=== PATIENT | male | born 1985 | race Caucasian/White ===

== ENCOUNTER 2022-09-07 22:50 | Emergency (ER) | payer OTHER ==
[~2022-09-07] VITALS: Ht 172.7 cm; Wt 107.0 kg
[2022-09-08 02:30] VITALS: BP 126/79
--- NOTE | 2022-09-08 07:27 | EKG ---
[facility] [address] [facility] [place], [place] [address] Signed Normal sinus rhythm Normal ECG When compared with ECG of 07-SEP-2022 23:03, (Unconfirmed) No significant change was found Confirmed by SYEDA VARELA MD ([id number]) on 09/08/2022 7:27:21 AM Electronically Signed By: SYEDA VARELA MD 09/08/22 0727 PATIENT NAME: MATT DOHERTY Electrocardiogram DATE OF : 85 PHYSICIAN: SYEDA VARELA MD REPORT #: [id number] REPORT IS CONFIDENTIAL AND NOT TO BE RELEASED WITHOUT AUTHORIZATION
--- NOTE | 2022-09-08 07:27 | EKG ---
[facility] [address] [facility] [place], [place] [address] Signed Normal sinus rhythm Normal ECG No previous ECGs available Confirmed by SYEDA VARELA MD ([id number] on 09/08/2022 7:27:13 AM Electronically Signed By: SYEDA VARELA MD 09/08/22 0727 PATIENT NAME: MATT DOHERTY Electrocardiogram DATE OF : 85 PHYSICIAN: SYEDA VARELA MD REPORT #: [id number] REPORT IS CONFIDENTIAL AND NOT TO BE RELEASED WITHOUT AUTHORIZATION
== END 2022-09-08 02:31 | disposition home or self-care (01) ==
LOC: ED 22:50
DX: R07.9 Chest pain, unspecified (principal); Z88.5 Allergy status to narcotic agent
CPT/HCPCS: 36415; 71045; 80053; 81003; 84484; 85025; 85610; 93005; 93010; 99285-25; J7121

== ENCOUNTER 2022-12-02 20:29 | Emergency (ER) | payer OTHER ==
[~2022-12-02] VITALS: Ht 172.7 cm; Wt 106.6 kg
[2022-12-02] MEDS ORDERED: INVEGA3 MG PO (21:31)
[2022-12-02] MEDS ORDERED: PROZAC20 MG PO (21:32)
[2022-12-02] MEDS ORDERED: COREG3.125 MG PO (21:33)
[2022-12-02] MEDS ORDERED: LIPITOR80 MG PO (21:33)
[2022-12-02] MEDS ORDERED: OMEPRAZOLE20 MG PO (21:34)
[2022-12-02] MEDS ORDERED: NITROSTAT0.4 MG SL (21:34)
[2022-12-02] MEDS ORDERED: LISINOPRIL5 MG PO (21:34)
[2022-12-02] MEDS ORDERED: MINIPRESS5 MG PO (21:35)
[2022-12-02 22:04] VITALS: BP 129/91
--- NOTE | 2022-12-06 06:34 | EKG ---
[facility] [address] [facility] [place] [address] Signed Normal sinus rhythm Normal ECG When compared with ECG of 08-SEP-2022 01:03, No significant change was found Confirmed by JEN SINGER MD ([id number]) on 12/06/2022 6:34:09 AM Electronically Signed By: JEN SINGER 12/06/22 0634 PATIENT NAME: MATT DOHERTY Electrocardiogram DATE OF : 85 PHYSICIAN: JEN SINGER REPORT #: [id number] REPORT IS CONFIDENTIAL AND NOT TO BE RELEASED WITHOUT AUTHORIZATION
== END 2022-12-02 22:04 | disposition home or self-care (01) ==
LOC: ED 20:29
DX: M79.604 Pain in right leg (principal); I25.2 Old myocardial infarction; Z95.5 Presence of coronary angioplasty implant and graft; Z88.5 Allergy status to narcotic agent; Z79.899 Other long term (current) drug therapy
CPT/HCPCS: 36415; 80053; 84484; 85025; 85379; 85610; 93005; 93010; 99283 25

== ENCOUNTER 2025-01-19 19:01 | Emergency (ER) | payer OTHER ==
[~2025-01-19] VITALS: Ht 172.7 cm; Wt 101.7 kg
[~2025-01-19 19:01] MED LIST: COREG3.125 MG PO; INVEGA3 MG PO; LIPITOR80 MG PO; LISINOPRIL5 MG PO; MINIPRESS5 MG PO; NITROSTAT0.4 MG SL; OMEPRAZOLE20 MG PO; PROZAC20 MG PO
[2025-01-19] MEDS ORDERED: NITROGLYCERIN PACKET TOP ONE (19:30)
[2025-01-19] MEDS ORDERED: ASPIRIN 81 MG CHEW PO ONE (19:30)
[2025-01-19 19:31] LABS: BASOPHILS 0.4 % (0.2-1.2); EOSINOPHILS 1.5 % (0.8-7.0); LYMPHOCYTES 34.8 % (21.8-53.1); MCH 30.1 PG (25.7-32.2); MCHC 34.2 g/dL (32.3-36.5); MCV 88.1 fL (79.0-92.2); MONOCYTES 9.7 % (5.3-12.2); NEUTROPHILS 53.5 % (34.0-67.9); RBC 4.28 M/uL (4.63-6.08)
[2025-01-19 19:42] LABS: INR 1.02 (0.80-1.30); PROTIME 12.7 Sec (11.2-14.2)
[2025-01-19 19:55] LABS: ALT (SGPT) 68.0 U/L (14-59); AST (SGOT) 36.0 U/L (15-37); GLOMERULAR FILTRATION RATE,EST 109.0 mL/min (>60); PROTEIN, TOTAL 7.2 g/dL (6.4-8.2); UREA NITROGEN 9.0 mg/dL (7-18)
[2025-01-19] MEDS ORDERED: CYCLOBENZAPRINE10 MG PO (21:04)
[2025-01-19 21:30] VITALS: BP 117/72
--- NOTE | 2025-01-21 18:24 | EKG ---
[facility] [address] [facility] [place] [address] Signed Normal sinus rhythm Normal ECG When compared with ECG of 12-AUG-2023 05:21, No significant change was found Confirmed by Wicho Martinez DO ([id number]) on 01/21/2025 6:24:18 PM Electronically Signed By: WICHO MARTINEZ DO 01/21/25 182 PATIENT NAME: DOHERTYMATT Electrocardiogram DATE OF : 85 PHYSICIAN: WICHO MARTINEZ DO REPORT #: [id number] REPORT IS CONFIDENTIAL AND NOT TO BE RELEASED WITHOUT AUTHORIZATION
== END 2025-01-19 21:31 | disposition home or self-care (01) ==
LOC: ED 19:01
PROVIDERS: Family Medicine
DX: R07.89 Other chest pain (principal); I25.2 Old myocardial infarction; Z88.8 Allergy status to other drugs, medicaments and biological substances; Z88.5 Allergy status to narcotic agent; Z79.899 Other long term (current) drug therapy
CPT/HCPCS: 36415; 71045; 80053; 83690; 83735; 84484; 85025; 85379; 85610; 93005; 93010; 99285-25; A9270